=== PATIENT | female | born 1960 | race Caucasian/White ===

== ENCOUNTER 2022-12-28 19:38 | Emergency (ER) | payer SELFPAY ==
[2022-12-28 20:09] VITALS: BP 161/89; PULSE 82; RESP 16; TEMP 97.8; BMI 22.4
[2022-12-28] MEDS ORDERED: ACETAMINOPHEN 500 MG TABLET (FP) PO ONE (21:00)
[2022-12-28] MEDS ORDERED: ACETAMINOPHEN 500 MG TABLET (FP) ONE (21:01)
== END 2022-12-28 21:16 | disposition home or self-care (01) ==
LOC: FER 19:38
DX: S62.102A Fracture of unspecified carpal bone, left wrist, initial encounter for closed fracture (principal); W18.40XA Slipping, tripping and stumbling without falling, unspecified, initial encounter
CPT/HCPCS: 73110-TC-LT-FY; 73130-TC-LT-FY; 99283-25